=== PATIENT | male | born 1970 | race Caucasian/White ===

== ENCOUNTER 2025-01-02 13:06 | Emergency (ER) | payer BC ==
[2025-01-02] MEDS ORDERED: Lidocaine 1%/Epinephrine 1:100K 10 ML VIAL ONE (13:09)
[2025-01-02] MEDS ORDERED: Bacitracin 1 PK ONE (13:40)
== END 2025-01-02 14:01 | disposition home or self-care (01) ==
LOC: BURERS 13:06
DX: S51.811A Laceration without foreign body of right forearm, initial encounter (principal); I10 Essential (primary) hypertension; E11.9 Type 2 diabetes mellitus without complications; F17.220 Nicotine dependence, chewing tobacco, uncomplicated; W11.XXXA Fall on and from ladder, initial encounter
CPT/HCPCS: 12004; 99283

== ENCOUNTER 2025-01-10 09:25 | Emergency (ER) | payer BC | END 2025-01-10 09:40 | disposition home or self-care (01) | LOC: BURERS 09:25 | DX: S51.811D Laceration without foreign body of right forearm, subsequent encounter (principal); I10 Essential (primary) hypertension; E11.9 Type 2 diabetes mellitus without complications; F17.220 Nicotine dependence, chewing tobacco, uncomplicated; X58.XXXD Exposure to other specified factors, subsequent encounter ==